=== PATIENT | male | born 1980 | race Caucasian/White ===

== ENCOUNTER 2024-08-26 08:54 | Day surgery (SDC) | payer BC ==
[~2024-08-26 08:54] MED LIST: Dexamethasone 4 MG/ML 5 ML MDV ONE; EPINEPHrine 1 MG/ML SDV ONE; Ketorolac 30 MG/ML SDV ONE; Lidocaine 1% 4 ML ONE; Midazolam 1 MG/ML 2 ML SDV ONE; Ondansetron 4 MG/2 ML SDV ONE; Propofol 200 MG/20 ML SDV ONE; Sodium Chloride 0.9% 10 ML Syringe FLUSH PRN; Sodium Chloride 0.9% 10 ML Syringe FLUSH SCH; dexmedeTOMIDine HCl 200 MCG/2 ML SDV ONE; fentaNYL 100 MCG/2 ML SDV ONE
[2024-08-26] MEDS: Lactated Ringers 1,000 ML IV SCH (09:20)
[2024-08-26] MEDS ORDERED: Propofol 200 MG/20 ML SDV ONE (10:08)
[2024-08-26] MEDS ORDERED: Ondansetron 4 MG/2 ML SDV IVPUSH PRN (11:10)
[2024-08-26] MEDS ORDERED: fentaNYL 100 MCG/2 ML SDV IVPUSH PRN (11:10)
[2024-08-26] MEDS: Acetaminophen/HYDROcodone 325-5 MG Tab PO SCH (12:07)
== END 2024-08-26 12:59 | disposition home or self-care (01) ==
LOC: JD.SDS 08:54
PROVIDERS: ATTEND Orthopaedic Surgery
DX: S83.241A Other tear of medial meniscus, current injury, right knee, initial encounter (principal); I10 Essential (primary) hypertension; E11.9 Type 2 diabetes mellitus without complications; E78.00 Pure hypercholesterolemia, unspecified; K21.9 Gastro-esophageal reflux disease without esophagitis; Z79.4 Long term (current) use of insulin; Z79.899 Other long term (current) drug therapy; X58.XXXA Exposure to other specified factors, initial encounter
CPT/HCPCS: 29880; 82947; A9270; J0171; J0665; J0690; J1885; J2003; J2250; J2405; J2704; J3010; J7120; 01400; J1100